=== PATIENT | male | born 1950 | race Caucasian/White ===

== ENCOUNTER 2024-04-18 17:40 | Inpatient (IN) | payer BC, MEDICARE, SELFPAY ==
[2024-04-18] VITALS (10 sets, daily range): BP systolic 111–165; BP diastolic 56–107; BMI 32.4; BMI 30.5
[2024-04-18 11:35] LABS: % Basophils 0.3 % (0-2); % Eosinophils 3.1 % (0-6); % Immature Granulocytes 0.4 % (0-0.5); % Lymphocytes 12.2 % (20.5-51.1); % Monocytes 10.3 % (1.7-9.3); % Neutrophils 73.7 % (42.2-75.2); Absolute Eosinophils 0.2 10^3/uL (0-0.7); Absolute Lymphocytes 0.8 10^3/uL (1.2-3.4); Absolute Monocytes 0.7 10^3/uL (0.1-0.6); Hematocrit 36.8 % (39.0-52.0); Hemoglobin 13.1 g/dL (13.0-18.0); Mean Corp Hgb Conc. 35.6 g/dL (33.0-37.0); Mean Corpuscular Hgb 30.9 pg (27.0-31.0); Mean Corpuscular Volume 86.8 fL (80.0-94.0); Mean Platelet Volume 8.9 fL (7.4-10.4); Nucleated Red Blood Cells % 0 % (-); Platelet Count 233 10^3/uL (130-400); Red Blood Cell Count 4.24 10^6/uL (4.70-6.10); Red Cell Dist. Width 12.8 % (11.5-14.5); White Blood Cell Count 6.8 10^3/uL (4.8-10.8)
[2024-04-18 11:50] LABS: ALT (SGPT) 17 U/L (0-50); AST (SGOT) 29 U/L (17-59); Albumin 4.3 g/dl (3.5-5.0); Alkaline Phosphatase 99 U/L (38-126); Blood Urea Nitrogen 21 mg/dl (9-20); Calcium 9.5 mg/dl (8.4-10.2); Carbon Dioxide 25 mmol/L (22-30); Chloride 104 mmol/L (98-107); Estimated Creatinine Clearance 79 ml/min; Glucose 102 mg/dl (70-99); Potassium 4.3 mmol/L (3.5-5.1); Sodium 137 mmol/L (135-145); Total Bilirubin 1.4 mg/dl (0.2-1.3); Total Protein 6.8 g/dl (6.3-8.2); eGFR > 60.00
[2024-04-18 12:06] LABS: NT-proBNP 1100 pg/ml; Troponin I 0.012 ng/ml
--- NOTE | 2024-04-18 13:57 | ED.GENMED ---
History of Present Illness
General
Chief Complaint: Breathing Problem
Source: patient and spouse
Time Seen by Provider: 04/18/24 11:23
Travel History
Have you had any contact with someone who has COVID-19?: No
Do you have any symptoms of coronavirus? Fever > 100 degrees, chills, cough, shortness of breath, sore throat, loss of taste or smell, muscle aches, or headache?: No
History of Present Illness
History of Present Illness:
73-year-old male who presents for evaluation of dyspnea on exertion. Patient got up this morning and felt okay. He then got up this morning to walk and he looked pale and short of breath. His states he was hypoxic and tachypneic and
tachycardic. 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 Patient at rest feels well. Denies chest pain. No leg swelling. No fevers. Patient does report that over the last 1 week he has felt short of breath when he walks up the stairs.
Past History
Past History
ED Past Medical History: Hypercholesterolemia, Valvular disease ('Valve repair' family unsure of which valve) and Other (Atrial septal defect)
ED Past Surgical History: Cardiac (Atrial septal defect repair, valve repair)
Phy Exam
Physical Exam
Physical Exam:
CONSTITUTIONAL Patient alert and oriented to person, place and time. Well-appearing. Vital signs reviewed.
HEAD atraumatic, normocephalic.
EYES eyelids normal to inspection, Pupils equally round and reactive to light, Extraocular muscles intact, Conjunctiva normal, Sclera normal.
NECK normal range of motion, Trachea midline, no jugular venous distention.
RESPIRATORY CHEST No respiratory distress noted, Chest expansion equal, Bilateral breath sounds clear.
CARDIOVASCULAR regular rate and rhythm, 2 out of 6 systolic ejection murmur
ABDOMEN abdomen nontender, Bowel sounds normal. No distention.
BACK normal inspection, no obvious deformities
UPPER EXTREMITY range of motion normal, Motor strength normal, no cyanosis, no edema.
LOWER EXTREMITY range of motion normal, Motor strength normal, no cyanosis, no edema.
NEURO Speech normal, No focal motor deficits, [place] coma scale 15, Memory normal, Cranial Nerves intact to screening exam.
SKIN skin warm, dry, and normal in color.
PSYCHIATRIC patient oriented to person place and time, Normal affect.
Scores
Heart Failure Risk
Heart Failure Risk Score: Not Applicable
Course
Orders/Labs/Results
Orders:
Orders
04/18/24 11:21
EKG [Electrocardiogram (*1)] Urgent
Reason for Study: Shortness of Breath
EKG- Treatment ONCE
04/18/24 11:29
Complete Blood Count/With Diff Urgent
Comprehensive Metabolic Panel Urgent
NT-proBNP Urgent
Troponin I Urgent
04/18/24 12:10
CR Chest - 2 Views Urgent
Comment:
Reason For Exam: sob
04/18/24 13:30
CT Chest Pe Study Urgent
Comment:
Reason For Exam: dyspnea
04/18/24 14:38
Heparin 8,900 units IV NOW STA
04/18/24 14:[address] See Dose Instructions PO NOW STA
Discontinue all Active Warfarin orders?: Yes
04/18/24 14:40
PTT Urgent
Comment: Obtain baseline before beginning heparin infusion if not already collected
Nursing to Place Non Medication Order As Directed
Physician Order: PTT 6 hours after initial start of Heparin infusion
04/18/24 14:45
Heparin 62091 Units/250 ml 25,000 units in 250 ml IV PER PROTOCOL
Weight to be used for heparin protocol in kilograms (kg):: 111.4
Protocol:: DVT/PE
PTT Goal Range to be used:: PTT 73 to 111 seconds
Order type:: Initial
INITIAL Infusion Dose (UNITS/KG/hr) & then follow protocol:: 18 units/kg/hr
Infusion Dose in UNITS/hr & then follow protocol (UNITS/hr):: 2,000
INFUSION RATE in mL/hr & then follow protocol (mL/hr):: 20
For DVT/PE algorithm, re-bolus for low PTT?: Yes
PTT less than or equal to 64 seconds:: Re-bolus 80 units/kg (max 10,000units). Increase by 500 units/hr
(+ 5mL/hr)
PTT 64.1 to 72.9 seconds:: Re-bolus 40 units/kg (max 5,000 units). Increase by 200 units/hr
(+ 2mL/hr)
PTT 73 to 111 seconds:: Target Range. No change in rate.
PTT 111.1 to 130.9 seconds:: Decrease rate by 200 units/hr (- 2 mL/hr)
PTT 131 to 199.9 seconds:: HOLD for 1 hr. Then decrease by 400 units/hr (- 4mL/hr)
PTT greater than or equal to 200 seconds:: HOLD for 2 hrs & Notify Provider. Then decrease by 500 units/hr
(- 5mL/hr)
Lab follow-up:: Each change, PTT q6h until 2 consecutive are therapeutic. Then
PTT daily.
04/18/24 15:[address] See Dose Instructions IV DIRECTED
Abnormal Lab Results
04/18/24
11:29
RBC 4.24 L 10^6/uL
(4.70-6.10)
Hct 36.8 L %
(39.0-52.0)
Absolute Lymphs (auto) 0.8 L 10^3/uL
(1.2-3.4)
Absolute Monos (auto) 0.7 H 10^3/uL
(0.1-0.6)
Lymphocytes % 12.2 L %
(20.5-51.1)
Monocytes % 10.3 H %
(1.7-9.3)
BUN 21 H mg/dl
(9-20)
Glucose 102 H mg/dl
(70-99)
Total Bilirubin 1.4 H mg/dl
(0.2-1.3)
04/18/24 11:29
04/18/24 11:29
Vital Signs
Initial and Last Documented VS:
Initial Vital Signs
Temp Pulse Resp BP Pulse Ox
97.8 F 78 14 132/92 94
04/18/24 11:21 04/18/24 11:21 04/18/24 11:21 04/18/24 11:21 04/18/24 11:21
Last Documented Vital Signs
Temp Pulse Resp BP Pulse Ox
97.8 F 64 17 111/83 97
04/18/24 11:21 04/18/24 12:45 04/18/24 12:45 04/18/24 12:00 04/18/24 12:45
MDM/Problems Addressed
MDM/Problems Addressed:
Acute severe bilateral pulmonary embolism, atrial thrombus, acute pulmonary infarcts
*Radiology
Radiology exam reviewed: preliminary read by ED provider (acute b/l PE's) and radiology read reviewed
*Pulse Oximetry
Patient hypoxic: no
*EKG
Interpreted by ED Provider?: Yes
Interpretation: abnormal
Rate: normal
Rhythm: sinus
Interval: first degree heart block and long QT
QRS Pattern: normal QRS
Ischemia: non-specific ST changes
*Renal Case Manager Interpretation
Rate: normal
Interpretation: normal
Rhythm: sinus
*Critical Care Note
Total Time (30-74mins, 75-104mins- exclusive of procedures): 35 minutes
Data Reviewed
Source: patient and spouse
Prescriptions/Medications Considered But Not Given:
Considered antibiotics based on x-ray but CTA shows pulmonary embolism bilaterally
Patient Management
Discussion with other providers: Hospitalist
Escalation/DeEscalation of care consider admission/obs:
73-year-old male who presents with dyspnea. Chest x-ray noted and read by radiology with patient lacked fever or cough. Consideration for pulmonary embolism was made and CT does confirm that. IV heparin. Blood pressure stable. Admit
ED Attending Note
-
Portions of this chart may have been created with voice recognition software.� Occasional wrong word or��sound alike� substitutions may have occurred due to the inherent limitations of voice recognition software.
Discharge Plan
Departure
Patient Disposition: Admit
Date of Disposition: 04/18/24
Time of Disposition: 14:43
Admit to: Telemetry
Presentation/result/management discussed w/ accepting MD/DO: Hospitalist
Discharge Problem:
Bilateral pulmonary embolism
Prescriptions:
No Action
atorvastatin 40 mg Tablet
40 mg PO DAILY
Rinvoq 30 mg Tablet Extended Release 24 Hr
30 mg PO DAILY
Referrals:
Kaden Paz MD [Family Provider] -
Interventions
Interventions:
*Risk Screen - Suicide Last Done: 04/18/24 11:24
*General Assessment Last Done: 04/18/24 11:24
*Neglect/Abuse Screening Last Done: 04/18/24 11:24
*ED COVID-19 Vaccine History Last Done: 04/18/24 11:24
ED- Cardiac Assessment Last Done: 04/18/24 11:26
ED- Pulmonary Assessment Last Done: 04/18/24 11:26
Discharge Date and Time
Print Language: CAMBODIAN
[2024-04-18] MEDS: HEPARIN 8900 UNITS IV (15:08)
[2024-04-18] MEDS: HEPARIN 25000 UNITS/250 ML IV (15:09)
[2024-04-18 15:10] LABS: APTT 26.1 Sec (23.4-35.0)
--- NOTE | 2024-04-18 16:53 | HPS.HSE ---
Family Physician
-
Family Physician: Kaden Paz MD
Chief Complaint
-
Shortness of breath
History of Present Illness
Since the week he has been feeling short of breath. Mostly exertional. Lately it has gotten worse.
He was having difficulty climbing stairs at home.
He is from [place] and was visiting family here in [facility]. He came here on Friday. He was noted to be short of breath with exertion. Last night was back. This morning when he was walking from the living room to the kitchen and back to
the living room he was short of breath terribly and his respiratory rate was high and when they checked the pulse ox at home it was 82% on room air.
Denies any chest pain. He was feeling kind of abnormal in the right side of the chest. No palpitations.
No dizziness or passing out spell.
CT imaging shows bilateral segmental PE but also left atrial thrombus.
Denies bilateral lower extremity swelling. He has got a bad knees so he is limited mobility because of that. No recent long journey or flight generally. No prior history of DVT or PE.
He apparently had a valve repair which they cannot remember which one; they also talk about atrial septal defect repair. The CAT scan with mitral valve repair and left atrial appendage exclusion.
Medical History
Past Medical History
Past Medical History: Reports Other (Ulcerative colitis on Rinvoq for a year now)
Past Surgical History: Reports Cardiac (cardiac valve repair ?mitral)
Social History
Tobacco: Former Smoker
Alcohol: None
Personal:
Living: With Family
Family History
Family History: Not pertinent
Allergies / Home Medications
Allergies reflects when Allergies were last updated in [facility].
Home Medications with original date entered in [facility]
Allergy/Medication List:
Allergies
Allergy/AdvReac Type Severity Reaction Status Date / Time
No Known Allergies Allergy Verified 04/18/24 14:41
Home Medications
atorvastatin 40 mg tablet 40 mg PO DAILY 04/18/24
latanoprost 0.005 % eye drops 1 drp BOTH EYES HS 04/18/24
multivitamin 1 tab PO DAILY 04/18/24
upadacitinib 30 mg tablet,extended release 24 hr (Rinvoq) 30 mg PO DAILY 04/18/24
Review of Systems
-
A 12 point ROS was completed and negative except as noted: Yes
Physical Exam
Vital Signs
Vital Signs
Temp Pulse Resp BP Pulse Ox
97.8 F 68 12 130/97 95
04/18/24 11:21 04/18/24 15:12 04/18/24 14:15 04/18/24 14:00 04/18/24 14:15
Physical Exam
General: No Apparent Distress
HEENT: Moist mucous membranes
Respiratory: Clear
Cardiac: S1/S2 and Regular Rhythm
GI: Soft
Musculoskeletal: No No Edema
Neuro: AO x 3
Psych: Calm
Laboratory Results
-
04/18/24 11:29
04/18/24 11:29
Laboratory Results
APTT 26.1 Sec (23.4-35.0) 04/18/24 14:51
Total Bilirubin 1.4 mg/dl (0.2-1.3) H 04/18/24 11:29
AST 29 U/L (17-59) 04/18/24 11:29
ALT 17 U/L (0-50) 04/18/24 11:29
Alkaline Phosphatase 99 U/L (38-126) 04/18/24 11:29
Troponin I 0.012 ng/ml 04/18/24 11:29
Data Reviewed
-
CT Scan: Report Reviewed by me (CT chest)
Lab Data: Labs Reviewed by me
Impression/Plan
-
Exertional shortness of breath with bilateral segmental PE. Currently hemodynamically stable. No RV strain on the CT chest. Admit to IMU. Start on IV heparin. Consult pulmonary. Check an ultrasound of the legs to rule out DVT.
Left atrial thrombus-patient talks about atrial septal defect repair and also unknown valve repair defect. Details are not clear. But he has a large left atrial thrombus. There is mention about left atrial appendage exclusion and mitral valve
repair on the CT chest. Will get a echocardiogram. Obtain all information. Consult cardiology.No evidence of systemic emboli based on symptoms.
Ulcerative colitis on Rinvoq. Continue home regimen
Hyperlipidemia-continue with statins.
Full code
--- NOTE | 2024-04-18 17:21 | CON.CAR ---
Consultation
Consultation Request
Date/Time Consultation Requested: 04/18/24
Date/Time Consultation Performed: 04/18/24
Requesting Provider: Dr Kuhn
Performing Provider: Dr Kulkarni
Reason for Consultation: la thrombus
Medical History
-
Chief Complaint: Dyspnea on exertion
History of Present Illness:
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 This a.m., when walking just from the living room to the
kitchen he was very short of breath with a very high respiratory rate. 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 CT scan showed bilateral segmental PE and left atrial thrombus.He has had no le edema, no long travel, no
family history of thrombus.
Past Medical History
Past Medical History: Arrhythmias (PAF prior to surgery decades ago that 'they took care of'), Hypercholesterolemia and Valvular Disease
Past Surgical History: Cardiac ('valve reparin--unknown type--->MVRepair on imaging, reported ASD repair--but imaging shows BEAN clip)
Social History
Tobacco: Non-Smoker
Alcohol: None
Living: With Family
Employment: Employed
Family History
Family History: Reviewed & Not Pertinent
Allergies / Home Medications
Allergy/AdvReac Type Severity Reaction Status Date / Time
No Known Allergies Allergy Verified 04/18/24 14:41
�Medication �Instructions �Recorded �Confirmed �Type
atorvastatin 40 mg tablet 40 mg PO DAILY 04/18/24 04/18/24 History
latanoprost 0.005 % eye drops 1 drp BOTH EYES HS 04/18/24 04/18/24 History
multivitamin 1 tab PO DAILY 04/18/24 04/18/24 History
upadacitinib 30 mg tablet,extended 30 mg PO DAILY 04/18/24 04/18/24 History
release 24 hr (Rinvoq)
Review of Systems
-
All other systems: Negative unless noted
Physical Exam
Vital Signs
Temp Pulse Resp BP Pulse Ox
97.8 F 68 12 130/97 95
04/18/24 11:21 04/18/24 15:12 04/18/24 14:15 04/18/24 14:00 04/18/24 14:15
Lab Results
04/18/24 11:29
04/18/24 11:29
Troponin I 0.012 ng/ml 04/18/24 11:29
Jdj-Y-Npiukhyphik Pept 1100 pg/ml 04/18/24 11:29
Physical Exam
General: Well Developed, Well Nourished and No Apparent Distress
HEENT: Normocephalic
Respiratory: Clear, Wheezes (none), Crackles (none) and Rhonchi (none)
Cardiac: S1/S2, Regular Rhythm, Murmur (none), Rub (none) and Peripheral Edema (none)
GI: Soft
Musculoskeletal: No Clubbing, No Cyanosis and No Edema
Neuro: AO x 3
Impression / Plan
-
PE: acute, no sign of rv strain on ct, vss
-hypercoag cardoza eventually
-hep to doac
-echo in am
LA thrombus:
-this is related to the bean device and I would suspect recurrent asx afib, but I don't think is related to acute situation
-no evidence of asd repair device--no e/o paradoxical evidence
-treatement in anticoagulation
H/o MV repair/bean occlusion device
-no loud murmur will check echo
HLD chronic conitnue statin
Data:
CTScan:
IMPRESSION:
1. SEVERE ACUTE BILATERAL PULMONARY ARTERIAL EMBOLIC DISEASE.
2. Severely enlarged left atrium containing a LARGE 3.6 cm INTRALUMINAL LEFT ATRIAL THROMBUS.
3. Mild pulmonary arterial hypertension.
4. No CTA evidence for right heart strain.
5. ACUTE PULMONARY INFARCTS in the lower lobes of both lungs (left larger than right).
6. Previous mitral valve repair and left atrial appendage exclusion.
7. Mild peripheral scarring and subsegmental atelectasis in both lungs.
8. Mild right hilar lymphadenopathy.
9. 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
CXR 04/18/24IMPRESSION:
1. Small patchy opacities in the lingula and in the lung apices suspicious for mild bilateral multifocal pneumonia. Small focal regions of subsegmental atelectasis/scarring are alternative diagnostic possibility.
2. Moderate bilateral lung hyperinflation suggesting chronic obstructive pulmonary disease (COPD).
3. Mild rounding of the left lateral costophrenic angle which is likely secondary to pleural thickening with overlying atelectasis/scarring. A pulmonary nodule is an alternative diagnostic possibility.
4. Previous mitral valve repair and left atrial appendage exclusion.
The [facility] Pulmonary Nodule Advisory Board hotline was called with the findings on 04/18/2024 at 1:19 PM.
Data Reviewed
-
EKG: Tracing Personally Visualized and interpreted (Normal sinus rhythm with primary AV conduction delay, nonspecific ST-T wave changes.)
Radiology: Image Personally Visualized and interpreted (cxr wit mv annuloplasty ring and bean clip, ct scan with the same an la thrombus seen rv not dilated) and Report Reviewed by me
Labs: Labs Reviewed by me (trop 0.012 probnp 1100)
--- NOTE | 2024-04-18 17:35 | CON.PUL ---
Consultation
Consultation Request
Date/Time Consultation Requested: 04/18/2024
Date/Time Consultation Performed: 04/18/2024
Requesting Provider: Dr. Kuhn
Performing Provider: Dr. Conrado Ruiz
Reason for Consultation: Acute pulmonary embolism
Medical History
-
History of Present Illness:
73-year-old man with past medical history of ulcerative colitis on Rinvoq for 1 years, former tobacco user, prior history of mitral valve repaired-no clear details available came to the hospital complaining of shortness of breath for about a week.
Shortness of breath was exertional and progressive. He was having difficulty climbing stairs.
He is from [place] visiting family in [facility]. Patient checks his pulse ox at home after a short walk and it was 80%.
Denies any cough, wheezing, phlegm production or hemoptysis.
CT of the chest in the emergency room demonstrated bilateral segmental pulmonary embolism with a left atrial thrombus.
Patient is sedentary due to bilateral knee arthritis. No recent travels.
No recent trauma.
Denies any leg edema.
He does not recall any family history of clots.
We were consulted on 04/18/2024 regarding pulm embolism
Past Medical History
Past Medical History: Other (See assessment and plan section)
Social History
Tobacco: Former Smoker
Alcohol: None
Personal:
Living: With Family
Family History
Family History: Reviewed & Not Pertinent
Allergies / Home Medications
Allergies
Allergy/AdvReac Type Severity Reaction Status Date / Time
No Known Allergies Allergy Verified 04/18/24 14:41
Home Medications
�Medication �Instructions �Recorded �Confirmed �Last Taken �Type
atorvastatin 40 mg tablet 40 mg PO DAILY 04/18/24 04/18/24 04/17/24 History
latanoprost 0.005 % eye drops 1 drp BOTH EYES HS 04/18/24 04/18/24 04/15/24 History
multivitamin 1 tab PO DAILY 04/18/24 04/18/24 04/17/24 History
upadacitinib 30 mg tablet,extended 30 mg PO DAILY 04/18/24 04/18/24 04/17/24 History
release 24 hr (Rinvoq)
Review of Systems
-
History Source: Patient
All other systems: Negative unless noted
Vitals / Labs / Diagnostic Testing
Vital Signs
Temp Pulse Resp BP Pulse Ox
97.8 F 68 12 130/97 95
04/18/24 11:21 04/18/24 15:12 04/18/24 14:15 04/18/24 14:00 04/18/24 14:15
Lab Data
04/18/24 11:29
04/18/24 11:29
Laboratory Results
04/18/24
14:51
APTT 26.1
Diagnostic Testing:
Physical Exam
-
HEENT: Normocephalic
Cardiovascular: S1/S2, Regular Rhythm and Other (No leg edema. )
Respiratory: Clear and Non-Labored Respirations
GI: Soft and Non Distended
Neurology: Awake and Oriented
Skin: Warm and Other (negative homans sing. )
General: Respiratory Distress (n)
Assessment
-
73-year-old man who came to the hospital complaining of shortness of breath and hypoxemia. He is visiting here from [place]. Found to have segmental bilateral pulmonary embolism. Stable hemodynamically. There is report of a possible left
atrial thrombus. There is history of prior mitral valve repair apparently and possibly history of septal defect. No details available. We were consulted on 04/18/2024 for evaluation
Acute segmental bilateral pulmonary embolism: Unprovoked.
Hemodynamically stable
Mild oxygen requirements
No evidence for RV strain on CT chest
Pulmonary infarct
Possible left atrial thrombus on CAT scan: Patient states that he possibly had some atrial septal defect/possible also valve repair-no clear details as he is not from around here.
Conditions present prior admission:
History of ulcerative colitis
Knee arthritis-sedentary lifestyle
? Mitral valve repair
? Atrial septal defect-no details available
Assessment and plan:
Shortness of breath explained by acute/subacute pulmonary embolism bilaterally. Left atrial thrombi with severe dilatation of the left atrium. Pulmonary embolism appears to be unprovoked.
Hemodynamically stable
Minimal oxygen requirements- now weaned off.
Not tachycardic.
-
Denies prior history of clots
Denies family history
Reports up to date with cancer screen.
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
-
I agree with heparin drip.Follow PTT
Obtain echocardiogram
Given left atrial thrombus and prior cardiac surgeries-cardiology will evaluate the patient.
More detailed will need to be obtained regarding his prior cardiac interventions.
-
Patient likely will need lifelong anticoagulation.
CT chest with possible bibasilar pulmonary infarcts.-Will need radiographic follow-up in 3 months.
-
Continue oxygen supplementation.
-
Upon discharge, patient will need to follow locally in [place].
-
Will continue to follow

Imaging reviewed:
CT angiogram of the chest 04/18/2024: Reviewed
1. SEVERE ACUTE BILATERAL PULMONARY ARTERIAL EMBOLIC DISEASE.
2. Severely enlarged left atrium containing a LARGE 3.6 cm INTRALUMINAL LEFT ATRIAL THROMBUS.
3. Mild pulmonary arterial hypertension.
4. No CTA evidence for right heart strain.
5. ACUTE PULMONARY INFARCTS in the lower lobes of both lungs (left larger than right).
6. Previous mitral valve repair and left atrial appendage exclusion.
7. Mild peripheral scarring and subsegmental atelectasis in both lungs.
8. Mild right hilar lymphadenopathy.
9. 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
--- NOTE | 2024-04-18 19:15 | PTCARENOTE ---
Patient transferred from ER due to PE. Admission endorsed to analyst geochemical prospecting RN. Patient oriented to room and attached to the monitor. Heparin drip infusing.
[2024-04-18] MEDS: XALATAN OPHTHALMIC SOLUTION 1 DROP BOTH EYES (21:47)
[2024-04-19] VITALS (12 sets, daily range): BP systolic 93–139; BP diastolic 67–111
--- NOTE | 2024-04-19 03:33 | PTCARENOTE ---
NO acute events overnight. Remains on room air. Heparin gtt infusing.
[2024-04-19 06:05] LABS: Hematocrit 35.7 % (39.0-52.0); Hemoglobin 12.3 g/dL (13.0-18.0); Mean Corp Hgb Conc. 34.5 g/dL (33.0-37.0); Mean Corpuscular Hgb 30.4 pg (27.0-31.0); Mean Corpuscular Volume 88.4 fL (80.0-94.0); Mean Platelet Volume 9.2 fL (7.4-10.4); Platelet Count 214 10^3/uL (130-400); Red Blood Cell Count 4.04 10^6/uL (4.70-6.10); Red Cell Dist. Width 12.4 % (11.5-14.5)
[2024-04-19 06:18] LABS: APTT 103.3 Sec (23.4-35.0)
[2024-04-19] MEDS: HEPARIN 25000 UNITS/250 ML IV ×2 (07:12→22:41)
[2024-04-19] MEDS: LIPITOR 40 MG PO (08:32)
--- NOTE | 2024-04-19 08:47 | W.PN.CD ---
Addendum entered and electronically signed by Kevin Azevedo MD 04/19/24 10:50:
I saw and examined the patient.
The ICE GRINDER's note was reviewed and I agree with the note.
Comment:
1. His program director/air personality is Dr. aPz [place] [phone]
2. Suspected left atrial thrombus by CT 'There is a 1.7 x 3.1 x 3.6 cm intraluminal blood clot in the left posterolateral aspect of the left atrium (axial image #65, series #401 and sagittal image #68, series #403). There is evidence for previous
left atrial appendage exclusion and mitral valve repair.' I explained to his that the suspected LA thrombus seen on CT may not be seen on echo and we will not pursue LEXIE
3. Pulmonary emboli
4. Dementia, confirms the diagnosis
5. I am in favor Eliquis 10 mg BID for 1 week then 5 mg BID. I would leave at 5 mg BID chronically
6. If echo is OK we will sign off.
Original Note:
Today's Communication / Plan
-
Echocardiogram today
Continue heparin gtt
Impression / Plan
-
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 He was found to have B/L segmental PEs.
PE: acute
-No sign of RV strain on CT
-Eventual hyper coag workup
-On heparin, eventual transition to DOAC
-Echocardiogram today
LA thrombus:
-This is related to the bean device and I would suspect recurrent asymptomatic paroxysmal atrial fibrillation, but I don't think is related to acute situation
-No evidence of asd repair device (no e/o paradoxical evidence)
-Treatment is anticoagulation
H/o MV repair/BEAN occlusion device, no loud murmur, echocardiogram today
HLD, chronic, continue statin
UC, on Rinvoq
Data:
CT Scan 04/18/24
IMPRESSION:
1. SEVERE ACUTE BILATERAL PULMONARY ARTERIAL EMBOLIC DISEASE.
2. Severely enlarged left atrium containing a LARGE 3.6 cm INTRALUMINAL LEFT ATRIAL THROMBUS.
3. Mild pulmonary arterial hypertension.
4. No CTA evidence for right heart strain.
5. ACUTE PULMONARY INFARCTS in the lower lobes of both lungs (left larger than right).
6. Previous mitral valve repair and left atrial appendage exclusion.
7. Mild peripheral scarring and subsegmental atelectasis in both lungs.
8. Mild right hilar lymphadenopathy.
9. 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
CXR 04/18/24
IMPRESSION:
1. Small patchy opacities in the lingula and in the lung apices suspicious for mild bilateral multifocal pneumonia. Small focal regions of subsegmental atelectasis/scarring are alternative diagnostic possibility.
2. Moderate bilateral lung hyperinflation suggesting chronic obstructive pulmonary disease (COPD).
3. Mild rounding of the left lateral costophrenic angle which is likely secondary to pleural thickening with overlying atelectasis/scarring. A pulmonary nodule is an alternative diagnostic possibility.
4. Previous mitral valve repair and left atrial appendage exclusion.
Physical Exam
Vital Signs/Labs
Vital Signs
Temp Pulse Resp BP Pulse Ox
98.1 F 63 13 106/73 95
04/19/24 03:12 04/19/24 06:00 04/19/24 06:00 04/19/24 04:00 04/19/24 06:00
04/18/24 04/19/24 04/20/24
06:59 06:59 06:59
Actual Weight 107.8 kg
04/19/24 05:49
04/18/24 11:29
APTT 103.3 Sec (23.4-35.0) H 04/19/24 05:49
04/18/24
11:29
Qey-X-Oyyldhgbzcy Pept 1100
LAB Results
04/18/24
11:29
Troponin I 0.012
Physical Exam
Constitutional: No acute distress and Comfortable
EENT: Anicteric and Moist mucous membranes
Cardiovascular: Rhythm & rate is regular, Pedal edema is absent, S1S2 is normal and Murmur/rub/gallop absent
Respiratory: Respiratory effort normal and Lungs clear to auscul.
GI: Soft, Distention absent and Normal bowel sounds
Neuro/Psych: AO x 3
Other: Skin (warm and dry)
Data Reviewed
-
Date of Service: April 19, 2024
EKG: Report Reviewed by me
X-Ray/CT/US/MRI/NUC/PET: Report Reviewed by me
Labs: Labs Reviewed by me
--- NOTE | 2024-04-19 09:44 | W.PN.HOSP.TC ---
Today's Communication/Plan
-
Echo
Ultrasound
Check pricing for Eliquis
Assessment / Plan
Assessment / Plan
73-year-old with shortness of breath
CT-severe acute bilateral pulmonary arterial embolic disease. Severely enlarged left atrium with 3.6 cm intra luminal left atrial thrombus. Mild pulmonary hypertension. Acute pulmonary infarcts in the lower lobes of both lungs. Previous mitral
valve repair and left atrial appendage exclusion. Mild peripheral scarring and atelectasis. Mild right hilar lymphadenopathy. 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
# Bilateral segmental PE
Hemodynamically stable. Not requiring any oxygen
Ulcerative colitis can cause hypercoagulable state-likely reason
Father and sister had history of 'blood clots'
No RV strain on CT
USS LE-pending
ECHO-pending
IV heparin
Check cost for Eliquis
He has had colonoscopy 3 months ago
Patient has had prostate checks in the past
Discussed about following up with hematology locally where he lives given the blood clots for further testing.
# Left atrial thrombus
Echo awaited
Cardiology has been consulted
# History of mitral valve repair-follows with MD [phone]
Echo pending
# Ulcerative colitis on Rinvoq-discussed with pharmacy to check with patient if they can bring from home or we can order
# Hyperlipidemia-continue statin
# CODE STATUS-full code
Discussed with family at bedside
Discussed with pharmacy
Anticipated Discharge: 24 - 48 hours
Subjective/Interval History
-
Date of Service: April 19, 2024
Objective Data
-
Labs:
Laboratory Results
04/18/24 04/19/24 04/19/24
21:44 05:49 12:40
WBC 7.0
Hgb 12.3 L
Hct 35.7 L
Plt Count 214
APTT 156.0 H* 103.3 H Pending
Vital Signs:
Vital Signs
Temp Pulse Resp BP Pulse Ox
98.1 F 63 13 106/73 95
04/19/24 03:12 04/19/24 06:00 04/19/24 06:00 04/19/24 04:00 04/19/24 06:00
I&O
04/18/24 04/19/24 04/20/24
06:59 06:59 06:59
Output Total 250 / 250
Balance -250 / -250
--- NOTE | 2024-04-19 10:12 | W.PN.PUL.V3 ---
Today's Communication / Plan
-
Supplemental oxygen as needed
Heparin drip-convert to oral anticoagulant in the near future
Echocardiogram
Lower extremity ultrasound
Outpatient pulmonary and hematologic follow-up
Assessment
-
73-year-old man who came to the hospital complaining of shortness of breath and hypoxemia. He is visiting here from [place]. Found to have segmental bilateral pulmonary embolism. Stable hemodynamically. There is report of a possible left
atrial thrombus. There is history of prior mitral valve repair apparently and possibly history of septal defect. No details available. We were consulted on 04/18/2024 for evaluation
Acute segmental bilateral pulmonary embolism: Unprovoked.
Hemodynamically stable
Mild oxygen requirements
No evidence for RV strain on CT chest
Pulmonary infarct
Possible left atrial thrombus on CAT scan: Patient states that he possibly had some atrial septal defect/possible also valve repair-no clear details as he is not from around here.
Conditions present prior admission:
History of ulcerative colitis
Knee arthritis-sedentary lifestyle
? Mitral valve repair
? Atrial septal defect-no details available
Plan
Respiratory status appears to be stable
Supplemental oxygen if needed
Incentive spirometry
Nebulizers if needed-currently not bronchospastic
Pulmonary embolisms bilaterally likely unprovoked
Heparin drip-changed to oral anticoagulation and treat for minimum of 3-6 months
Since unprovoked recommend eventual hematologic evaluation to rule out hypercoagulable state
Cardiology following-reviewed with them
Left atrial thrombus was also noted despite previous left atrial clip
Heparin drip continues-convert to oral anticoagulant in the near future
Echocardiogram pending
Lower extremity ultrasound pending
Upon discharge recommended outpatient pulmonary [id number] in [facility]

Imaging reviewed:
CT angiogram of the chest 04/18/2024: Reviewed
1. SEVERE ACUTE BILATERAL PULMONARY ARTERIAL EMBOLIC DISEASE.
2. Severely enlarged left atrium containing a LARGE 3.6 cm INTRALUMINAL LEFT ATRIAL THROMBUS.
3. Mild pulmonary arterial hypertension.
4. No CTA evidence for right heart strain.
5. ACUTE PULMONARY INFARCTS in the lower lobes of both lungs (left larger than right).
6. Previous mitral valve repair and left atrial appendage exclusion.
7. Mild peripheral scarring and subsegmental atelectasis in both lungs.
8. Mild right hilar lymphadenopathy.
9. 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
Subjective Data
-
Date of Service:
Date of Service: April 19, 2024
Chief Complaint: Pulmonary Follow Up and Dyspnea Follow Up
Subjective:
No complaints of chest pain, pleurisy, productive cough, abdominal pain, leg swelling
Review of Systems
General: Other (Per HPI)
Objective Data
Data Reviewed
Vital Signs / I&O:
Vital Signs
Temp Pulse Resp BP Pulse Ox
98.1 F 63 13 106/73 95
04/19/24 03:12 04/19/24 06:00 04/19/24 06:00 04/19/24 04:00 04/19/24 06:00
Intake and Output
04/18/24 04/19/24 04/20/24
06:59 06:59 06:59
Output Total 250 / 250
Balance -250 / -250
SaO2: 95
Physical Exam
General: Respiratory Distress (n) and Comfortable
HEENT: Normocephalic, Anicteric and Moist Mucous Membranes
Cardiovascular: Regular Rhythm
Respiratory: Wheeze (n), Crackles (n), Rhonchi, Non-Labored Respirations, Accessory Resp Muscle Use (n) and Stridor (n)
GI: Soft, Non Distended and Non Tender
Neurology: Awake, Alert and No Motor Deficits
Skin: Warm, Good Color, Cyanosis (n), Jaundice (n) and Rash
Labs/Micro/Reports
Lab Data
04/19/24 05:49
04/18/24 11:29
Laboratory Results
04/18/24 04/18/24 04/18/24
14:51 21:12 21:44
APTT 26.1 Cancelled 156.0 H*
04/19/24
05:49
APTT 103.3 H
--- NOTE | 2024-04-19 12:22 | CM ---
Met with patient and his (a retired RN) and his son at the bedside; initial assessment completed
One of the Case Management consults completed: provided Advanced Directive information packet
Local Pharmacy: [facility], [facility] (Home Pharmacy is also [facility])
For Family Physician, verified her 's Molasses Coloring Operator, Dr. Paz
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
floor; 2nd floor bathroom has a stall shower
PLOF: reported that patient was independent with ADLs prior to present illness; has arthritis in his legs and ambulates with a Cane; drives
SNF/Rehab/Home Health utilization history: none
Attending will call local pharmacy for Eliquis prescription; CM will contact RX for out of pocket cost; coupon given to
Plan: discharge disposition to be determined pending hospital course and PT/OT's recommendation
encouraged to contact insurance company and inquire about in/out of network coverage and in the event patient needs Skilled Rehab
Explained to and son that CM will monitor patient's condition and support discharge needs when determined
[2024-04-19 13:43] LABS: APTT 93.7 Sec (23.4-35.0)
--- NOTE | 2024-04-19 17:01 | PTCARENOTE ---
see nursing assessment. pt in sinus rythym with bundle branch block and slightly prolonged QT. iv heparin infusing and therapeutic levels obtained x 2. ptt due to be redrawn in am. pt on room air and has noc c/o shortness of breath. using incentive
spirometer and able to get to full capacity
--- NOTE | 2024-04-19 20:59 | PTCARENOTE ---
Assumed care of pt from day shift RN. Pt family at bedside. Pt attempted to exit bed independently, Pt currently on bedrest with okay for use of chair. RN explained to pt the necessity of not exiting the bed independently at the time being. pt
expressed understanding. Pt currently getting heparin at 1600u/hr, 16ml/hr. Pt is currently in therapeutic range. Please see nursing shift report for full head to toe. Call jon in reach.
[2024-04-19] MEDS: XALATAN OPHTHALMIC SOLUTION 1 DROP BOTH EYES (21:24)
[2024-04-20] VITALS (15 sets, daily range): BP systolic 94–120; BP diastolic 56–92; PULSE 70–77; O2SAT 97; BMI 30.7
[2024-04-20 06:17] LABS: APTT 111.7 Sec (23.4-35.0)
[2024-04-20 06:34] LABS: Hematocrit 36.4 % (39.0-52.0); Hemoglobin 12.7 g/dL (13.0-18.0); Mean Corp Hgb Conc. 34.9 g/dL (33.0-37.0); Mean Corpuscular Hgb 30.2 pg (27.0-31.0); Mean Corpuscular Volume 86.7 fL (80.0-94.0); Platelet Count 244 10^3/uL (130-400); Red Cell Dist. Width 12.7 % (11.5-14.5); White Blood Cell Count 7.5 10^3/uL (4.8-10.8)
--- NOTE | 2024-04-20 09:02 | W.PN.HOSP.TC ---
Addendum entered and electronically signed by Lizzie Johnson MD 04/20/24 09:27:
Eliquis covered. Will switch
Original Note:
Today's Communication/Plan
-
See which oral anticoagulant is covered and switch to that
PT OT
Discharge planning
would like to see how the patient does and PT OT first
Assessment / Plan
Assessment / Plan
73-year-old with shortness of breath
CT-severe acute bilateral pulmonary arterial embolic disease. Severely enlarged left atrium with 3.6 cm intra luminal left atrial thrombus. Mild pulmonary hypertension. Acute pulmonary infarcts in the lower lobes of both lungs. Previous mitral
valve repair and left atrial appendage exclusion. Mild peripheral scarring and atelectasis. Mild right hilar lymphadenopathy. 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
Denies any CP or SOB
CVS: S1-S2 normal
Chest: CTA B/L
Abdomen: Soft, NT / Bowel sounds present
Extremities: No edema, normal pulses
RECONSIGNMENT CLERK: Non focal exam
# Bilateral segmental PE
Hemodynamically stable. Not requiring any oxygen
Ulcerative colitis can cause hypercoagulable state-likely reason
Father and sister had history of 'blood clots'
No RV strain on CT
USS LE-Neg
ECHO-normal biventricular size and systolic function without regional wall motion abnormality. Mild concentric LVH. Possible thrombus in the posterior left atrium. Biatrial enlargement. Status post mitral valve repair with good result
IV heparin-to be switched over to oral anticoagulants. Will discuss with case management again.
Check cost for Eliquis
He has had colonoscopy 3 months ago
Patient has had prostate checks in the past
Discussed about following up with hematology locally where he lives given the blood clots for further testing.
Patient is not requiring any oxygen. He is sitting in a chair today. Denies any complaints of shortness of breath or chest pain.
# Left atrial thrombus
Discussed with Dr. Azevedo today. Continue oral anticoagulation and follow-up with outpatient manager of learning.
# History of mitral valve repair-follows with [place] [phone]
Patient also has history of DARREN clip questionable history of Septal defect repair
Echo as above
# Ulcerative colitis on Rinvoq-family getting it overnight shipped
# Hyperlipidemia-continue statin
# CODE STATUS-full code
Discussed with and son at bedside
Discussed with pulmonary
Discussed with Dr. Palmer from cardiology
Discussed with case management
Anticipated Discharge: Within 24 hours
Subjective/Interval History
-
Date of Service: April 20, 2024
Objective Data
-
Labs:
Laboratory Results
04/20/24 04/20/24 04/20/24
05:51 06:10 12:30
WBC Cancelled 7.5
Hgb Cancelled 12.7 L
Hct Cancelled 36.4 L
Plt Count Cancelled 244
APTT 111.7 H Pending
Vital Signs:
Vital Signs
Temp Pulse Resp BP Pulse Ox
98.8 F 69 18 120/88 94
04/20/24 03:04 04/20/24 06:00 04/20/24 06:00 04/20/24 06:00 04/20/24 06:00
I&O
04/19/24 04/20/24 04/21/24
06:59 06:59 06:59
Output Total 250 / 250 2049
Balance -250 / -250 -2049
[2024-04-20] MEDS: LIPITOR 40 MG PO (09:04)
--- NOTE | 2024-04-20 09:22 | CM ---
Addendum entered by Laura Pierre 04/20/24 12:27:
Spoke with via phone this morning and instructed her to grain picker Eliquis script @ [facility], [address], [place]
Original Note:
CM Consult completed. Contacted [facility] for Eliquis cost
[facility], no [facility] of pocket cost to patient for [facility] script.
[facility] [place], [facility] is [facility] of [facility].
Instructed Attending to resend the script to [id number] on [address] [place]; RX was added to pharmacy list for Attending. This location has the drug in stock.
--- NOTE | 2024-04-20 09:42 | W.PN.PUL.V3 ---
Today's Communication / Plan
-
Wean oxygen
Increase activity
Physical and Occupational Therapy evaluation
Convert to oral anticoagulant-minimum of 3 months-recommend hematologic hypercoagulable workup
Assessment
-
73-year-old man who came to the hospital complaining of shortness of breath and hypoxemia. He is visiting here from [place]. Found to have segmental bilateral pulmonary embolism. Stable hemodynamically. There is report of a possible left
atrial thrombus. There is history of prior mitral valve repair apparently and possibly history of septal defect. No details available. We were consulted on 04/18/2024 for evaluation
Acute segmental bilateral pulmonary embolism: Unprovoked.
Hemodynamically stable
Mild oxygen requirements
No evidence for RV strain on CT chest
Pulmonary infarct
Left atrial thrombus on CAT scan: Patient states that he possibly had some atrial septal defect/possible also valve repair-no clear details as he is not from around here, echocardiogram confirms probable small clot left atrium
Conditions present prior admission:
History of ulcerative colitis
Knee arthritis-sedentary lifestyle
Mitral valve repair
? Atrial septal defect-no details available
Plan
He remains stable from a pulmonary perspective
Supplemental oxygen if needed-currently on room air and asymptomatic with good saturations
Incentive spirometry encouraged
Nebulizers if needed-currently not bronchospastic
Pulmonary embolisms bilaterally-suspect unprovoked
Heparin drip-changed to oral anticoagulation and treat for minimum of 3-6 months
Since unprovoked recommend eventual hematologic evaluation to rule out hypercoagulable state
Cardiology following-reviewed with them
Left atrial thrombus was also noted despite previous left atrial clip
Heparin drip continues-convert to oral anticoagulant in the near future
Echocardiogram 04/19/2024-EF 55%, mild concentric left ventricular hypertrophy, possible thrombus posterior left atrium, biatrial enlargement, status post mitral valve repair with good results-mean gradient 2 mmHg and no mitral regurgitation
Lower extremity 04/19/2024-no evidence for DVT in bilateral lower extremities
Reviewed with and son at the bedside as well as primary team and nursing
Patient is stable from a pulmonary perspective and could be converted to oral anticoagulant, physical therapy evaluation and potential discharge with close pulmonary follow-up as an outpatient
Upon discharge recommended outpatient pulmonary [id number] in [facility]

Imaging reviewed:
CT angiogram of the chest 04/18/2024: Reviewed
1. SEVERE ACUTE BILATERAL PULMONARY ARTERIAL EMBOLIC DISEASE.
2. Severely enlarged left atrium containing a LARGE 3.6 cm INTRALUMINAL LEFT ATRIAL THROMBUS.
3. Mild pulmonary arterial hypertension.
4. No CTA evidence for right heart strain.
5. ACUTE PULMONARY INFARCTS in the lower lobes of both lungs (left larger than right).
6. Previous mitral valve repair and left atrial appendage exclusion.
7. Mild peripheral scarring and subsegmental atelectasis in both lungs.
8. Mild right hilar lymphadenopathy.
9. 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
Subjective Data
-
Date of Service:
Date of Service: April 20, 2024
Chief Complaint: Pulmonary Follow Up and Dyspnea Follow Up
Subjective:
Denies any shortness of breath at rest, chest pain, pleurisy, chest congestion, productive cough or abdominal pain
Review of Systems
General: Other (Per HPI)
Objective Data
Data Reviewed
Vital Signs / I&O:
Vital Signs
Temp Pulse Resp BP Pulse Ox
98.8 F 69 18 120/88 94
04/20/24 03:04 04/20/24 06:00 04/20/24 06:00 04/20/24 06:00 04/20/24 06:00
Intake and Output
04/19/24 04/20/24 04/21/24
06:59 06:59 06:59
Output Total 250 / 250 2049
Balance -250 / -250 -2049 /
SaO2: 94
Physical Exam
General: Respiratory Distress (n) and Comfortable
HEENT: Normocephalic, Anicteric and Moist Mucous Membranes
Cardiovascular: Regular Rhythm
Respiratory: Wheeze (n), Crackles (n), Rhonchi, Non-Labored Respirations, Accessory Resp Muscle Use (n) and Stridor (n)
GI: Soft, Non Distended and Non Tender
Neurology: Awake, Alert and No Motor Deficits
Skin: Warm, Good Color, Cyanosis (n), Jaundice (n) and Rash
Labs/Micro/Reports
Lab Data
04/20/24 06:10
04/18/24 11:29
Laboratory Results
04/19/24 04/20/24
12:53 05:51
APTT 93.7 H 111.7 H
[2024-04-20] MEDS: ELIQUIS 10 MG PO ×2 (11:00→19:23)
--- NOTE | 2024-04-20 14:03 | CM ---
Case Management Consult for discharge planning/VN/PT completed
Plan: Discharge to home daughter's home tomorrow (located in [place]) with home health services from [facility] for VN and PT
Referral for [facility] health PT and [facility]
Sent a request to Attending for a script for PT to provide [facility]; and an order for a hospital bed from [facility]
--- NOTE | 2024-04-20 14:34 | W.PN.UPDATE ---
Addendum entered and electronically signed by Lizzie Johnson MD 04/20/24 16:58:
patient has a medical condition which requires positioning the body in ways not feasible with an ordinary bed
Original Note:
Update Note
Progress Note Update
Patient needs hospital bed because of his pulmonary embolism and PE, generalized weakness. He is unable to get upstairs to his bedroom. He also needs to change positions .
--- NOTE | 2024-04-20 15:14 | VNURNOTE ---
Home Health Liaison spoke with patient's Ladonna to discuss [facility] nurse/therapy, visits, schedule and homebound status. She verbalizes understanding and is agreeable. Explained that visits at home will be 2-3 x per week to assess and teach
medical management. She is aware that [facility] will contact them for start of care in 1-2 days after discharge from . [facility] referral completed in [facility]. Hospital bed Rx sent to [facility]. Spoke with Jamilah who stated a bed will be
available for delivery tomorrow, most likely in afternoon.
--- NOTE | 2024-04-20 16:19 | VNURNOTE ---
Spoke with over phone - inquired if current with a PCP. Spouse stated pt has not seen PCP in many years. Confirmed he is current with athletic gear custodian ([facility]) and GI in [place] Dr Rooney. Explained patient has to be current with a
doctor in the community for home care orders- usually is a PCP. Spouse verbalizes understanding. Pending athletic gear custodian response for future outpatient orders. [facility] intake aware.
--- NOTE | 2024-04-20 19:05 | PTCARENOTE ---
Care of Pt assumed from previous RN. Pt currently resting in chair, call light in reach. Pt NSR on monitor, prolonged QT which was noted on previous EKG as well as 1st degree block. Pt on tele monitoring. HR 67. Pt expresses no further needs at this
time. Call jon in reach.
[2024-04-20] MEDS: XALATAN OPHTHALMIC SOLUTION 1 DROP BOTH EYES (19:35)
[2024-04-21 01:25] VITALS: BP 128/85
[2024-04-21 04:00] VITALS: BP 90/57
[2024-04-21 08:00] VITALS: BP 117/86
[2024-04-21] MEDS: ELIQUIS 10 MG PO (08:30)
[2024-04-21] MEDS: LIPITOR 40 MG PO (08:30)
--- NOTE | 2024-04-21 09:08 | VNURNOTE ---
This nurse received confirmation that patient's outpatient gas producer will follow once d/c'ed. Spoke with spouse, updated that bed delivery set up for today. Time TBD. [facility] has spouse's cell number to call for delivery.
Spouse informed this RN that as of last night[facility] [place] [facility]. [place] Text sent to Attending requesting Rx re-send.
[2024-04-21 09:12] LABS: Hematocrit 38.6 % (39.0-52.0); Mean Corp Hgb Conc. 33.7 g/dL (33.0-37.0); Mean Corpuscular Hgb 30.4 pg (27.0-31.0); Mean Corpuscular Volume 90.4 fL (80.0-94.0); Mean Platelet Volume 8.9 fL (7.4-10.4); Platelet Count 273 10^3/uL (130-400); Red Blood Cell Count 4.27 10^6/uL (4.70-6.10); Red Cell Dist. Width 12.9 % (11.5-14.5); White Blood Cell Count 6.3 10^3/uL (4.8-10.8)
[2024-04-21 09:38] LABS: Blood Urea Nitrogen 19 mg/dl (9-20); Calcium 9.5 mg/dl (8.4-10.2); Carbon Dioxide 24 mmol/L (22-30); Chloride 105 mmol/L (98-107); Estimated Creatinine Clearance 88 ml/min; Glucose 133 mg/dl (70-99); Potassium 4.5 mmol/L (3.5-5.1); Sodium 138 mmol/L (135-145); eGFR > 60.00
[2024-04-21 09:47] VITALS: BP 129/83
[2024-04-21 10:03] VITALS: BP 129/83; PULSE 74
--- NOTE | 2024-04-21 10:05 | W.PN.PUL.V3 ---
Today's Communication / Plan
-
Tolerating oral anticoagulant
Physical therapy
Increase activity
Outpatient pulmonary/hematology evaluation
Assessment
-
73-year-old man who came to the hospital complaining of shortness of breath and hypoxemia. He is visiting here from [place]. Found to have segmental bilateral pulmonary embolism. Stable hemodynamically. There is report of a possible left
atrial thrombus. There is history of prior mitral valve repair apparently and possibly history of septal defect. No details available. We were consulted on 04/18/2024 for evaluation
Acute segmental bilateral pulmonary embolism: Unprovoked.
Hemodynamically stable
Mild oxygen requirements
No evidence for RV strain on CT chest
Pulmonary infarct
Left atrial thrombus on CAT scan: Patient states that he possibly had some atrial septal defect/possible also valve repair-no clear details as he is not from around here, echocardiogram confirms probable small clot left atrium
Conditions present prior admission:
History of ulcerative colitis
Knee arthritis-sedentary lifestyle
Mitral valve repair
? Atrial septal defect-no details available
Plan
He is stable from a pulmonary perspective
Supplemental oxygen if needed-currently on room air and asymptomatic with good saturations
Incentive spirometry encouraged
Nebulizers if needed-currently not bronchospastic
Pulmonary embolisms bilaterally-suspect unprovoked
Heparin drip-changed to oral anticoagulation and treat for minimum of 3-6 months
Since unprovoked recommend eventual hematologic evaluation to rule out hypercoagulable state
Cardiology following-reviewed with them
Left atrial thrombus was also noted despite previous left atrial clip
Heparin drip continues-convert to oral anticoagulant in the near future
Echocardiogram 04/19/2024-EF 55%, mild concentric left ventricular hypertrophy, possible thrombus posterior left atrium, biatrial enlargement, status post mitral valve repair with good results-mean gradient 2 mmHg and no mitral regurgitation
Lower extremity 04/19/2024-no evidence for DVT in bilateral lower extremities
Dr. Sidhu reviewed with and son at the bedside as well as primary team and nursing
Patient is stable from a pulmonary perspective for proposed discharge-strongly recommend follow-up pulmonary/hematology in [facility]- and son understood and are making appointments
Upon discharge recommended outpatient pulmonary [id number] in [facility]

Imaging reviewed:
CT angiogram of the chest 04/18/2024: Reviewed
1. SEVERE ACUTE BILATERAL PULMONARY ARTERIAL EMBOLIC DISEASE.
2. Severely enlarged left atrium containing a LARGE 3.6 cm INTRALUMINAL LEFT ATRIAL THROMBUS.
3. Mild pulmonary arterial hypertension.
4. No CTA evidence for right heart strain.
5. ACUTE PULMONARY INFARCTS in the lower lobes of both lungs (left larger than right).
6. Previous mitral valve repair and left atrial appendage exclusion.
7. Mild peripheral scarring and subsegmental atelectasis in both lungs.
8. Mild right hilar lymphadenopathy.
9. 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
Subjective Data
-
Date of Service:
Date of Service: April 21, 2024
Chief Complaint: Pulmonary Follow Up and Dyspnea Follow Up
Subjective:
No complaints of shortness of breath, chest pain, productive cough, and starting to ambulate with physical therapy
Review of Systems
General: Other (Per HPI)
Objective Data
Data Reviewed
Vital Signs / I&O:
Vital Signs
Temp Pulse Resp BP Pulse Ox
97.4 F 74 11 129/83 95
04/21/24 07:35 04/21/24 09:47 04/21/24 09:47 04/21/24 09:47 04/20/24 20:16
Intake and Output
04/20/24 04/21/24 04/22/24
06:59 06:59 06:59
Intake Total 1440 / 1440
Output Total 2049 400 / 400
Balance -2049 / 1040 / 1040
SaO2: 95
Physical Exam
General: Respiratory Distress (n) and Comfortable
HEENT: Normocephalic, Anicteric and Moist Mucous Membranes
Cardiovascular: Regular Rhythm
Respiratory: Wheeze (n), Crackles (n), Rhonchi, Non-Labored Respirations, Accessory Resp Muscle Use (n) and Stridor (n)
GI: Soft, Non Distended and Non Tender
Neurology: Awake, Alert and No Motor Deficits
Skin: Warm, Good Color, Cyanosis (n), Jaundice (n) and Rash
Labs/Micro/Reports
Lab Data
04/21/24 09:03
04/21/24 09:03
Laboratory Results
04/20/24
12:30
APTT Cancelled
--- NOTE | 2024-04-21 10:33 | W.PN.HOSP.TC ---
Today's Communication/Plan
-
Discharge
Assessment / Plan
Assessment / Plan
73-year-old with shortness of breath
CT-severe acute bilateral pulmonary arterial embolic disease. Severely enlarged left atrium with 3.6 cm intra luminal left atrial thrombus. Mild pulmonary hypertension. Acute pulmonary infarcts in the lower lobes of both lungs. Previous mitral
valve repair and left atrial appendage exclusion. Mild peripheral scarring and atelectasis. Mild right hilar lymphadenopathy. 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
Denies any CP or SOB
CVS: S1-S2 normal
Chest: CTA B/L
Abdomen: Soft, NT / Bowel sounds present
Extremities: No edema, normal pulses
# Bilateral segmental PE
Hemodynamically stable. Not requiring any oxygen
Ulcerative colitis can cause hypercoagulable state-likely reason
Father and sister had history of 'blood clots'
No RV strain on CT
USS LE-Neg
ECHO-normal biventricular size and systolic function without regional wall motion abnormality. Mild concentric LVH. Possible thrombus in the posterior left atrium. Biatrial enlargement. Status post mitral valve repair with good result
IV heparin- switched over to Eliquis
He has had colonoscopy 3 months ago
Patient has had prostate checks in the past
Discussed about following up with hematology locally where he lives given the blood clots for further testing.
# Left atrial thrombus
Discussed with Dr. Azevedo . Continue oral anticoagulation and follow-up with outpatient photographs curator.
# History of mitral valve repair-follows with [facility] [phone]
Patient also has history of DARREN clip questionable history of Septal defect repair
Echo as above
# Ulcerative colitis on Rinvoq-family getting it overnight shipped
# Hyperlipidemia-continue statin
# CODE STATUS-full code
Discussed with and son at bedside
Discussed with pulmonary
Discussed with case management
Discussed with RN
Hospital bed arranged, Rolling walker given
Script sent to [facility]
Discharge coordination time 35 min
Anticipated Discharge: Today
Subjective/Interval History
-
Date of Service: April 21, 2024
Objective Data
-
Labs:
Laboratory Results
04/20/24 04/21/24
12:30 09:03
WBC 6.3
Hgb 13.0
Hct 38.6 L
Plt Count 273
APTT Cancelled
Sodium 138
Potassium 4.5
Chloride 105
Carbon Dioxide 24
BUN 19
Creatinine 1.0
Glucose 133 H
Calcium 9.5
Vital Signs:
Vital Signs
Temp Pulse Resp BP Pulse Ox
97.4 F 85 16 129/83 95
04/21/24 07:35 04/21/24 10:00 04/21/24 10:00 04/21/24 09:47 04/21/24 10:05
I&O
04/20/24 04/21/24 04/22/24
06:59 06:59 06:59
Intake Total 1440 / 1440
Output Total 2049 400 / 400
Balance -2049 / -2049 1040 / 1040
--- NOTE | 2024-04-21 10:35 | W.DS.TRANS ---
Addendum entered and electronically signed by Lizzie Johnson MD 04/21/24 15:26:
Dictation- [id number]
Original Note:
DC Summary - Clinical Care Manager
-
Discharge Instructions:
Discharge Diagnosis/Procedures PE,LA Thrombus, Ulcerative colitis,
Hyperlipidemia
Diet As tolerated
Activity As tolerated,With assistance
Driving Restrictions No driving for 1 week
Blood Work CBC 1 month
Other Services VN
Instructions:
Stand-Alone Forms:
Changes to Home Medications: Yes
Discharge Medications:
DC Medications w/original date entered in [facility]
atorvastatin 40 mg tablet 40 mg PO DAILY High Cholesterol 04/18/24
latanoprost 0.005 % eye drops 1 drp BOTH EYES HS Eye Condition 04/18/24
multivitamin 1 tab PO DAILY Supplement 04/18/24
upadacitinib 30 mg tablet,extended release 24 hr (Rinvoq) 30 mg PO DAILY Autoimmune Disorder 04/18/24
apixaban 5 mg (74 tabs) tablets in a dose pack (Eliquis DVT-PE Treat 30D Start) See Rx Instructions PO .COMPLEX pe #74 ea 04/21/24
Home Medication Changes
new
apixaban 5 mg (74 tabs) tablets in a dose pack (Eliquis DVT-PE Treat 30D Start) See Rx Instructions PO .COMPLEX pe #74 ea 04/21/24
Pending Results: No
--- NOTE | 2024-04-21 11:37 | CM ---
Patient with Dx Bilateral segmental PE, left atrial thrombus. Room air.
Met with patient, and son Sean; the patient says he feels ready for d/c home today. IMM completed. [place] ([place] will not be present[place] The adddress is: [address],
[place]. A son and daughter will be coming by to assist the patient as needed. 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
Spoke with BRIAN Doherty Liaison; hospital bed scheduled to be delivered by [facility] to daughter's house today.
As per prior CM notes: Eliquis coupon given to .
Spoke with ROBBY Rousseau; he will issue the RW. Script for RW on chart.
Plan home today with VN, with hospital bed and RW, with family.
== END 2024-04-21 13:29 | disposition home health service (06) | DRG 314 ==
LOC: IMU 17:40
PROVIDERS: ADMITTING PHYSICIAN Internal Medicine; ATTENDING PHYSICIAN Hospitalist; CONSULT PHYSICIAN Internal Medicine Cardiovascular Disease; CONSULT PHYSICIAN Internal Medicine Critical Care Medicine; EMERGENCY PHYSICIAN Emergency Medicine; FAMILY PHYSICIAN Internal Medicine Cardiovascular Disease
DX: T82.867A Thrombosis due to cardiac prosthetic devices, implants and grafts, initial encounter (principal); I26.99 Other pulmonary embolism without acute cor pulmonale; K51.90 Ulcerative colitis, unspecified, without complications; J98.11 Atelectasis; I51.3 Intracardiac thrombosis, not elsewhere classified; E78.00 Pure hypercholesterolemia, unspecified; I44.0 Atrioventricular block, first degree; M17.0 Bilateral primary osteoarthritis of knee; Y71.2 Prosthetic and other implants, materials and accessory cardiovascular devices associated with adverse incidents; Y92.9 Unspecified place or not applicable; Y83.8 Other surgical procedures as the cause of abnormal reaction of the patient, or of later complication, without mention of misadventure at the time of the procedure; I27.21 Secondary pulmonary arterial hypertension; R09.02 Hypoxemia; R59.0 Localized enlarged lymph nodes; I48.0 Paroxysmal atrial fibrillation; Z87.74 Personal history of (corrected) congenital malformations of heart and circulatory system; Z87.891 Personal history of nicotine dependence
CPT/HCPCS: 71046; 71275; 80048; 80053; 83880; 84484; 85025; 85027; 85730; 93005; 93306; 93970; 96374; 97116; 97162; 97166; 99291; Q9967